=== PATIENT | female | born 1955 | race Caucasian/White ===

== ENCOUNTER 2017-08-04 16:01 | Inpatient (IN) | payer OTHER ==
[~2017-08-04] VITALS: Ht 162.6 cm; Wt 52.2 kg
[~2017-08-04 16:01] MED LIST: ACTI1/05PT PO; CELLC500PT PO; ESOM40CA42 PO; MAGN250T25 PO; POTA99TA13 PO; PRE1 PO; SIL20 PO; TACR1CAP15 PO; ZINC PO; [UNRECOGNIZED DRUG - CODE] PO; [UNRECOGNIZED DRUG - CODE] PO
--- NOTE | 2017-08-04 16:09 | ER Report ---
History and Physical Time Seen By MD: 16:09 (MORGAN COYSANTY) HPI/ROS CHIEF COMPLAINT: Shortness of breath HISTORY OF PRESENT ILLNESS: This is a 62-year-old female who presents to the emergency department for shortness of breath. Patient has a history of liver transplant, and is on antirejection medications. Patient states that prior to the holiday season she had some shortness of breath with a cough, was treated with Z-pack x2. [place] better until this past . Patient states her has been sick and thinks she "ended up with what he had". She developed some shortness of breath this past Thursday, with some midsternal chest pain. Patient states that since then her shortness of breath has increased and did go in to see her primary care provider where she was noted to have an oxygen saturation of 50%, and was instructed to come to the emergency department for further evaluation. When she arrived here in emergency department her O2 saturation was 50%, and was working pretty hard using accessory muscles and it did take about 10 minutes while on a nonrebreather to increase saturations up to 90-95%. Patient also states that she has had aches and chills over the past several days , one episode of vomiting last night but nothing today no nausea at this time. Patient is unsure she's had fevers at home. She also states that she does have a mild headache. No dysuria or bowel concerns at this time. REVIEW OF SYSTEMS: Constitutional: As above. Eyes: No discharge. ENT: No sore throat. Cardiovascular: As above. Respiratory: As above. Gastrointestinal: As above. Genitourinary: No hematuria. Musculoskeletal: No back pain. Skin: No rashes. Neurological: No headache. (MORGAN COY) Allergies: Coded Allergies: levofloxacin (Verified Allergy, Intermediate, HIVES, 08/04/17) Home Meds Reported Medications Mycophenolate Mofetil (CELLCEPT) 500 Mg Tab, 2 TAB PO BID, TAB 05/26/13 Tacrolimus Anhydrous (Prograf) 1 Mg Capsule, 1 MG PO BID, 0 Refills 05/16/08 Discontinued Reported Medications Multivitamins (One Daily Multi Vitamin) 1 Tab Tablet, 1 TAB PO DAILY, 0 Refills 05/16/08 Past Medical/Surgical History Patient has a past medical and surgical history pulmonary hypertension, constipation, liver transplant, hysterectomy, wears glasses, skin cancer. (MORGAN COY-SANTY) Reviewed Nurses Notes: Yes (MORGAN COY) Constitutional Vital Sign - Last 24 Hours 08/04/17 16:11 Temp 98.9 Pulse 99 B/P (MAP) 114/55 Pulse Ox 54 O2 Delivery Room Air (LAURORA,GABRIEL V DO) Physical Exam General Appearance: The patient is alert, has no immediate need for airway protection and no signs of toxicity, however she is working hard to breath, lips pale. Eyes: Pupils equal and round no pallor or injection. ENT, Ears: TM's intact, pearly dai, landmarks noted, no injection, left canal moderate amount of cerumen. Nose: inferior turbinates pink and moist, no discharge. Mouth: Mucous membranes are moist. Respiratory: Rhonchi bilateral bases, expiratory wheezes to the right middle lobe, upper lobes clear. Cardiovascular: Regular rate and rhythm, systolic murmur, no rubs or clicks. Gastrointestinal: Abdomen is soft and non tender, no masses, bowel sounds normal. Neurological: Alert and oriented 4. Moving all extremities. Following all commands. No focal neural deficits. Skin: Warm and dry, no rashes. Musculoskeletal: Neck is supple non tender. Extremities are nontender, nonswollen and have full range of motion. DIFFERENTIAL DIAGNOSIS: After history and physical exam differential diagnosis was considered for shortness of breath including but not limited to pulmonary infectious process, COPD, asthma, pulmonary embolus and congestive heart failure , influenza. (MORGAN COY) Medical Decision Making Data Points Result Diagram: 08/04/17 1625 08/04/17 1625 EKG/Imaging EKG Interpretation 12 lead EKG: Time 1650 Rhythm: Sinus rhythm, ventricular rate 91 bpm. [place]: normal QRS: normal ST segments: No ST depression or elevation noted. No previous EKG. Imaging PATIENT NAME: Soheila Mccormack : 1955 MR: [id number] V: [id number] EXAM DATE: ORDERING PHYSICIAN: MORGAN COY TECHNOLOGIST: [place] [facility] [place] Soheila Mccormack : 1955 Visit/Account:[id number] Date of Sevice: 08/04/2017 2 VIEWS CHEST INDICATION: Chest pain, cough and congestion. COMPARISON: 01/15/2015. FINDINGS: Cardiomediastinal silhouette and pulmonary vessels within normal limits. Patchy bilateral multilobar infiltrates which are new from the previous exam. No focal consolidation. There is no pneumothorax or pleural effusion. No discrete nodule. Upper abdomen is unremarkable. No acute bony abnormality. IMPRESSION: 1. Bilateral patchy hazy infiltrates without consolidation. This could represent pneumonia, edema or hemorrhage. Report Dictated By: Keaton Lambert at 08/04/2017 5:38 PM Report E-Signed By: Keaton Lambert at 08/04/2017 5:40 PM WSN:[id number] (MORGAN COY) ED Course/Re-evaluation Clinical Indication for ER IV: Hydration, IV Access ED Course The patient was admitted to room. A history and physical were obtained. Differential diagnoses were considered. An IV was started. A CBC, CMP were obtained. WBCs 19.3 with a left shift. Sodium 122, BUN 27, creatinine 1.4. Negative influenza. A 2 view chest showing bilateral patchy infiltrates consistent with pneumonia. I did review these results with the patient and she is willing to be admitted to the hospital. Patient's oxygen saturation on 4 L nasal cannula has been 90-95%. Patient did get a 500 L bolus of lactated Ringer' s. Patient was given an hour long neb tx which improver her oxygenation, with decreased work of breathing. I did review this case with Dr. Aggarwal as noted below. Admitted to medical surgical unit for pneumonia. 3.375 Zosyn was given. The patient had no other questions or concerns upon admission. 08/04/2017 6:10:06 pm did review the case with Dr. Silver Aggarwal, she is attentive to the patient into her services and we'll admit the patient to medical surgical unit for pneumonia. Decision to Disposition Date: Aug 04, 2017 Decision to Disposition Time: 18:05 (MORGAN COY) Depart Departure Latest Vital Signs Vital Signs Date Time Temp Pulse Resp B/P (MAP) Pulse Ox O2 Delivery O2 Flow Rate FiO2 08/04/17 16:11 98.9 99 114/55 54 Room Air (LAURORA,GABRIEL V DO) Impression: Primary Impression: Pneumonia Additional Impressions: Hypoxia Failure of outpatient treatment Hyponatremia Condition: Improved Disposition: Admitted from ER Referrals: GURPREET VICENTE (PCP) [facility]NT/[place] consult with MD: Verbally, Examined Patient MD Consult Note: I personally saw and evaluated the patient in conjunction with the midlevel provider and agree with plan. CHIEF COMPLAINT: sob HISTORY OF PRESENT ILLNESS: PT states she has been sick with sob and uri symptoms for over two weeks. Pt has been to [facility] and tx with zithromax twice. Pt states feeling worse, + cough, + chills, + bodyaches. Pt took her pulse ox at home today and was 50% on room air. Pt is usually not on oxygen but has had it since her recent cold. Denies cp. PT is on immunosuppressives. REVIEW OF SYSTEMS: Constitutional: No fever, + chills. Eyes: No discharge. ENT: No sore throat. Cardiovascular: No chest pain, no palpitations. Respiratory: + cough, + shortness of breath. Gastrointestinal: No abdominal pain, no vomiting. Genitourinary: No hematuria. Musculoskeletal: No back pain. + bodyaches Skin: No rashes. Neurological: No headache. General Appearance: The patient is alert, has no immediate need for airway protection and no signs of toxicity. Eyes: Pupils equal and round no pallor or injection, EOMI ENT: no pharyngeal erythema or exudates, Mucous membranes are moist Respiratory: + Rhonchi throughout with mild wheeze Cardiovascular: Regular rate and rhythm. pulses are equal and symmetrical, + murmur Gastrointestinal: Abdomen is soft and non tender, no masses, bowel sounds normal, no guarding, no rigidity or rebound Neurological: Cranial nerves II-XII grossly intact, no sensory or motor loss Skin: Warm and dry, no rashes. Musculoskeletal: Neck is supple non tender, no vertebral tenderness Extremities are nontender, non swollen and have full range of motion. DIFFERENTIAL DIAGNOSIS: After history and physical exam differential diagnosis was considered for pneumonia, influenza, bronchitis (LAURORA,GABRIEL V DO) Problem Qualifiers Primary Impression: Pneumonia Pneumonia type: due to unspecified organism Laterality: bilateral Lung location: unspecified part of lung Qualified Codes: J18.9 - Pneumonia, unspecified organism MORGAN COYP-BC Aug 04, 2017 16:09 GABRIEL JC DO Aug 04, 2017 16:37
[2017-08-04] MEDS ORDERED: LR IV ONE (16:29)
[2017-08-04] MEDS ORDERED: IPRATROPIUM 0.5MG/2.5ML NEB NEB ONE (16:35)
[2017-08-04] MEDS ORDERED: ALBUTEROL 2.5 MG/0.5ML ER ONLY NEB ONE (16:35)
[2017-08-04 16:42] LABS: PLATELET COUNT, AUTOMATED 255 K/uL (150-450)
[2017-08-04] MEDS ORDERED: NS 0.9% NEB 3 ML SOLN ONE (16:45)
--- NOTE | 2017-08-04 17:05 | EKG ---
FACILITY: [facility] PATIENT NAME: ZACHARIAH KELLER : [id number] MR: [id number] V: [id number] EXAM DATE: ORDERING PHYSICIAN: MORGAN COY TECHNOLOGIST: TITA Test Reason : SOB Blood Pressure : / mmHG Vent. Rate : 091 BPM Atrial Rate : 091 BPM P-R Int : 146 ms QRS Dur : 084 ms QT Int : 354 ms P-R-T Axes : 065 058 059 degrees QTc Int : 435 ms Normal sinus rhythm Low voltage QRS Borderline ECG No previous ECGs available Confirmed by MUMTAZ FORBES ([id number]) on 08/04/2017 5:25:23 PM Referred By: ABEL Confirmed By:MUMTAZ FORBES
--- NOTE | 2017-08-04 17:45 | RADIOLOGY IMAGING REPORT ---
[facility] PATIENT NAME: Soheila Mccormack : 1955 MR: [id number] V: [id number] EXAM DATE: ORDERING PHYSICIAN: MORGAN COY TECHNOLOGIST: Location: [facility] [place] Patient: Soheila Mccormack : 1955 Visit/Account:[id number] Date of Sevice: 08/04/2017 2 VIEWS CHEST INDICATION: Chest pain, cough and congestion. COMPARISON: 01/15/2015. FINDINGS: Cardiomediastinal silhouette and pulmonary vessels within normal limits. Patchy bilateral multilobar infiltrates which are new from the previous exam. No focal consolidation. There is no pneumothorax or pleural effusion. No discrete nodule. Upper abdomen is unremarkable. No acute bony abnormality. IMPRESSION: 1. Bilateral patchy hazy infiltrates without consolidation. This could represent pneumonia, edema or hemorrhage. Report Dictated By: Keaton Lambert at 08/04/2017 5:38 PM Report E-Signed By: Keaton Lambert at 08/04/2017 5:40 PM WSN:[id number]
[2017-08-04] MEDS ORDERED: PIPERACILLIN/TAZO*3.375GM VIAL 3.375 GM in NS(*) 0.9% 100 ML ADDVANT BAG 100 ML IVPB ONE (18:15)
[2017-08-04] MEDS ORDERED: ACETAMINOPHEN 325 MG TAB PO PRN (18:45)
--- NOTE | 2017-08-04 19:00 | History & Physical ---
History of Present Illness Chief Complaint The patient is a 62 year old female with history of liver transplant who presents with several days of fever, chills and shortness of breath. History of Present Illness The patient states she had a respiratory infection before [place] and saw CLAUDIO An. She was treated with 2 courses of azithromycin and got better. She was well for 2 weeks. Last week her came home with a cold. She then developed respiratory symptoms including cough. She had fever and chills as well. She progressively became more short of breath and last night could not sleep. Her appetite has been poor. She was seen at her PCPs office today and was noted to have a oxygen saturation of 50% on room air. She was sent to the ER for further evaluation. History Problems: (1) Liver transplant recipient Status: Chronic (2) Hx of bacterial pneumonia Home Meds Reported Medications Doxycycline Hyclate (DOXYCYCLINE HYCLATE) 100 Mg Tablet.dr, 100 MG PO BID for 7 Days, #14 08/07/17 Cefdinir 300 Mg Cap (OMNICEF 300 MG CAP (OR EQUIV)) 300 Mg Cap, 300 MG PO BID for 7 Days, CAP 08/07/17 Mycophenolate Mofetil (CELLCEPT) 500 Mg Tab, 2 TAB PO BID, TAB 05/26/13 Tacrolimus Anhydrous (Prograf) 1 Mg Capsule, 1 MG PO BID, 0 Refills 05/16/08 Allergies: Coded Allergies: levofloxacin (Verified Allergy, Intermediate, HIVES, 08/04/17) Other Social/Family Hx The patient is and lives with her in [place]. 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 FH is noncontributory. Hx Smoking: No Exposure to Second Hand Smoke?: No Hx Alcohol Use: No Hx Substance Use Disorder: No Social Drug Use: Never History of IV Drug Use: No Review of Systems All Systems Reviewed/Normal: Yes, Except as Noted Constitutional: Fever Neurological: Weakness Cardiovascular: Chest Pain Respiratory: Shortness of Breath, Cough Gastrointestinal: Other (Decreased appetite.) Exam Vital Signs General Appearance: Alert, Awake, Other (Increased work of breathing. Appears ill.) Neuro: No Gross deficits Eyes: PERRLA ENT: Other (Dry mucous membranes.) Neck: No Masses Cardiovascular: Other (Tachy, regular with 2/6 JUSTEN heard best at LUSB.) Respiratory: Other (Bibasilar crackles. Occasional wheezing.) GI: Abd Soft and Non-Tender Extremities: Warm, Perfused, Other (No edema.) Integumentary: Skin Intact without Lesion / Mass Psych: Appropriate Mood & Affect Medical Decision Making Data Points Item Value Date Time Calcium Level 8.8 mg/dl 08/04/17 1625 Total Bilirubin 1.1 mg/dl 08/04/17 1625 Aspartate Amino Transf (AST/SGOT) 16 U/L 08/04/17 1625 Alanine Aminotransferase (ALT/SGPT) 32 U/L 08/04/17 1625 Alkaline Phosphatase 111 U/L 08/04/17 1625 Troponin I < 0.012 ng/ml 08/04/17 1625 Total Protein 6.6 gm/dl 08/04/17 1625 Albumin 3.5 g/dl 08/04/17 1625 Influenza Virus Type A (PCR) Negative 08/04/17 1630 Influenza Virus Type B (PCR) Negative 08/04/17 1630 Blood cultures pending. EKG / Imaging EKG Interpretation FACILITY: [facility] PATIENT NAME: SOHEILA KELLER : [id number] MR: [id number] V: [id number] EXAM DATE: ORDERING PHYSICIAN: MORGAN COY TECHNOLOGIST: TITA Test Reason : SOB Blood Pressure : / mmHG Vent. Rate : 091 BPM Atrial Rate : 091 BPM P-R Int : 146 ms QRS Dur : 084 ms QT Int : 354 ms P-R-T Axes : 065 058 059 degrees QTc Int : 435 ms Normal sinus rhythm Low voltage QRS Borderline ECG No previous ECGs available Confirmed by MUMTAZ FORBES ([id number]) on 08/04/2017 5:25:23 PM Referred By: ABEL Confirmed By:MUMTAZ FORBES 1650 T: CARLMARY ALICELI/ Monitor Interpretation: Sinus Tachycardia Imaging FACILITY: [facility] PATIENT NAME: Soheila Keller : 1955 MR: [id number] V: [id number] EXAM DATE: [id number] ORDERING PHYSICIAN: MORGAN COY TECHNOLOGIST: [place] [facility] [place] Soheila [place] : 1955 Visit/Account:[id number] Date of Sevice: 08/04/2017 2 VIEWS CHEST INDICATION: Chest pain, cough and congestion. COMPARISON: 01/15/2015. FINDINGS: Cardiomediastinal silhouette and pulmonary vessels within normal limits. Patchy bilateral multilobar infiltrates which are new from the previous exam. No focal consolidation. There is no pneumothorax or pleural effusion. No discrete nodule. Upper abdomen is unremarkable. No acute bony abnormality. IMPRESSION: 1. Bilateral patchy hazy infiltrates without consolidation. This could represent pneumonia, edema or hemorrhage. Report Dictated By: Keaton Lambert at 08/04/2017 5:38 PM Report E-Signed By: Keaton Lambert at 08/04/2017 5:40 PM WSN:[id number] Pre-Admit Course Medical Record Review: Yes Assessment and Plan Problems: (1) Pneumonia Status: Acute Assessment & Plan: Will place on Zosyn and doxycycline. Hydrate. Place on oxygen to keep sats 90% or greater. Duoneb treatments tid and albuterol q 2 hours prn. (2) Hypoxia Status: Resolved Assessment & Plan: Due to above. Continue O2. (3) Hyponatremia Status: Resolved Assessment & Plan: She states her sodium usually runs about 128. Will hydrate with NS. Repeat labs in am. (4) Liver transplant recipient Status: Chronic Assessment & Plan: On Prograf and Cellcept. Will continue. Time Spent on Plan of Care: < 30 min Copies to: GURPREET VICENTE Venous Thromboembolism VTE Risk Physician Assess for VTE Risk: Yes Patient's VTE Risk: Low VTE Diagnostic Test 2 Days Prior to Admit: No Antithrombotics Is Pt On Any Antithrombotics?: Yes Exam Sepsis Risk: Possible Sepsis Risk Problem Qualifiers (1) Pneumonia: Pneumonia type: due to unspecified organism Laterality: bilateral Lung location: unspecified part of lung Qualified Codes: J18.9 - Pneumonia, unspecified organism MUMTAZ OATES MD Aug 04, 2017 18:59
[2017-08-04 19:53] VITALS: BP 101/57
[2017-08-04] MEDS: NS(*) 0.9% 1000 ML BAG 1,000 ML IV PRN (20:24)
[2017-08-04] MEDS: DOXYCYCLINE HYCL 100 MG VIAL 100 MG in NS(*) 0.9% 250 ML BAG 250 ML IV SCH (20:44)
[2017-08-04] MEDS: TACROLIMUS 1 MG CAP PO SCH (20:44)
[2017-08-04] MEDS: MYCOPHENOLATE 500 MG TAB PO SCH (20:44)
[2017-08-04] MEDS ORDERED: PATIENT'S OWN MED PO SCH ×2 (21:00)
[2017-08-04 23:00] VITALS: BP 104/48
[2017-08-04] MEDS: PIPERACILLIN/TAZO SOD* 2.25 GM 2.25 GM in NS(*) 0.9% 100 ML ADDVANT BAG 100 ML IVPB SCH (23:29)
[2017-08-05] MEDS: guaiFENesin SYRP 100MG/5ML UDC PO PRN ×2 (00:36→04:41)
[2017-08-05 03:13] VITALS: BP 101/55
[2017-08-05] MEDS: NS(*) 0.9% 1000 ML BAG 1,000 ML IV PRN ×2 (04:41→14:48)
[2017-08-05] MEDS: PIPERACILLIN/TAZO SOD* 2.25 GM 2.25 GM in NS(*) 0.9% 100 ML ADDVANT BAG 100 ML IVPB SCH ×4 (05:34→23:21)
[2017-08-05] MEDS: ALBUTEROL/IPRATROPIUM 3 ML NEB NEB SCH ×3 (05:41→17:55)
[2017-08-05 05:42] LABS: PLATELET COUNT, AUTOMATED 263 K/uL (150-450)
[2017-08-05 07:36] VITALS: BP 97/57
[2017-08-05] MEDS: DOXYCYCLINE HYCL 100 MG VIAL 100 MG in NS(*) 0.9% 250 ML BAG 250 ML IV SCH ×2 (08:40→20:46)
[2017-08-05] MEDS: ENOXAPARIN 40 MG/0.4ML SYR SC SCH (08:40)
[2017-08-05] MEDS: TACROLIMUS 1 MG CAP PO SCH ×2 (08:50→20:45)
[2017-08-05] MEDS: MYCOPHENOLATE 500 MG TAB PO SCH ×2 (08:50→20:45)
[2017-08-05 09:47] VITALS: Ht 162.6 cm; Wt 52.2 kg
[2017-08-05 10:46] VITALS: BP 101/63
--- NOTE | 2017-08-05 10:46 | Hospitalist Progress Note ---
Subjective Progress Notes Subjective This patient was admitted for pneumonia. She had no acute events overnight. Patient Complains of: Cardiovascular: No: Chest Pain Respiratory: Cough, Shortness of Breath Physical Exam Vital Signs Date Time Temp Pulse Resp B/P (MAP) Pulse Ox O2 Delivery O2 Flow Rate FiO2 08/05/17 08:00 92 High-Flow Nasal Cannula 6.0 08/05/17 07:36 97.6 92 20 97/57 (70) Intake and Output 08/06/17 07:00 # Voids 1 Neuro: No Gross deficits Cardiovascular: Regular Rate and Rhythm Respiratory: Other (Bilateral rhonchi.) Extremities: No Edema Integumentary: No Cyanosis Result Diagram: 08/05/17 0528 08/05/1728 Item Value Date Time Blood Culture - Preliminary Resulted 08/04/17 1657 Blood NO GROWTH AFTER 1 DAY, REINCUBATED Blood Culture - Preliminary Resulted 08/04/17 1625 Blood NO GROWTH AFTER 1 DAY, REINCUBATED Monitor Interpretation: Sinus Tachycardia Assessment and Plan Problems: (1) Pneumonia Status: Acute Assessment & Plan: She did present with shortness of breath. Her chest x-ray did show bilateral infiltrates and her WBC was elevated. She was placed on empiric treatment with Zosyn and doxycycline secondary to her history of liver transplant and suppression therapy. Her blood cultures are currently negative. (2) Hypoxia Status: Acute Assessment & Plan: She did have increased oxygen requirements, but we have been weaning this today. (3) Hyponatremia Status: Acute Assessment & Plan: She reports that her sodium generally runs around 128, but it was lower at admission. Her levels have been improving on a saline infusion. 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 She is on chronic treatment with Prograf and Cellcept. Exam Sepsis Risk: Sepsis Risk Problem Qualifiers (1) Pneumonia: Pneumonia type: due to unspecified organism Laterality: bilateral Lung location: unspecified part of lung Qualified Codes: J18.9 - Pneumonia, unspecified organism GISELA WINTER DO Aug 05, 2017 10:46
[2017-08-05 14:49] VITALS: BP 90/47
[2017-08-05 14:56] VITALS: BP 98/50
[2017-08-05 20:37] VITALS: BP 91/63
[2017-08-05] MEDS: IBUPROFEN 200 MG TAB PO PRN (23:21)
[2017-08-06] MEDS: guaiFENesin SYRP 100MG/5ML UDC PO PRN (02:08)
[2017-08-06 03:48] VITALS: BP 89/50
[2017-08-06] MEDS: ALBUTEROL/IPRATROPIUM 3 ML NEB NEB SCH ×3 (05:17→17:05)
[2017-08-06 05:42] LABS: PLATELET COUNT, AUTOMATED 243 K/uL (150-450)
[2017-08-06] MEDS: PIPERACILLIN/TAZO SOD* 2.25 GM 2.25 GM in NS(*) 0.9% 100 ML ADDVANT BAG 100 ML IVPB SCH (06:00)
--- NOTE | 2017-08-06 06:25 | RADIOLOGY IMAGING REPORT ---
FACILITY: PATIENT NAME: Soheila Mccormack : 1955 MR: [id number] V: [id number] EXAM DATE: ORDERING PHYSICIAN: GISELA WINTER TECHNOLOGIST: Location: [facility] Patient: Soheila Mccormack : 1955 Visit/Account:[id number] Date of Sevice: 08/06/2017 PORTABLE CHEST: Indication: Pneumonia. Technique: A single frontal film was obtained. Comparison: 08/04/2017 Skeletal and soft tissue structures: Intact and unchanged. Heart and mediastinum: Stable. Lung crane: There is ill-defined parenchymal consolidation at the left base, compatible with acute p neumonia. The lung crane are otherwise unchanged. Pleural spaces: A small left effusion is suspected. Impression: Left basilar parenchymal consolidation, compatible with acute pneumonia. Report Dictated By: Loco West MD at 08/06/2017 6:20 AM Report E-Signed By: Loco West MD at 08/06/2017 6:21 AM WSN:[id number]
[2017-08-06] MEDS: ENOXAPARIN 40 MG/0.4ML SYR SC SCH (08:43)
[2017-08-06] MEDS: DOXYCYCLINE HYCL 100 MG VIAL 100 MG in NS(*) 0.9% 250 ML BAG 250 ML IV SCH ×2 (08:43→20:19)
[2017-08-06] MEDS: MYCOPHENOLATE 500 MG TAB PO SCH ×2 (08:44→20:18)
[2017-08-06] MEDS: TACROLIMUS 1 MG CAP PO SCH ×2 (08:44→20:18)
[2017-08-06] MEDS ORDERED: INFLUENZA VIRUS VAC 0.5 ML SYR IM ONLY ONE (09:00)
[2017-08-06] MEDS ORDERED: NS(*) 0.9% 1000 ML BAG 1,000 ML IV PRN (09:52)
[2017-08-06 11:36] VITALS: BP 102/49
[2017-08-06] MEDS: PIPERACILLIN/TAZO*3.375GM VIAL 3.375 GM in NS(*) 0.9% 100 ML ADDVANT BAG 100 ML IVPB SCH ×3 (11:52→23:22)
[2017-08-06] MEDS ORDERED: FUROSEMIDE 20 MG/2 ML VIAL IVP ONE (12:50)
[2017-08-06] MEDS ORDERED: MAGNESIUM HYDROXIDE* 30ML UDCP PO PRN (12:50)
[2017-08-06] MEDS: POLYETHYLENE GLYCOL 17 GM PKT PO SCH (12:50)
[2017-08-06] MEDS ORDERED: BISACODYL 10 MG SUPP PR PRN (12:50)
--- NOTE | 2017-08-06 14:26 | Hospitalist Progress Note ---
Subjective Progress Notes Subjective Overall feeling better and less SOB. She had some abdominal distention. No BM since admission. Physical Exam Vital Signs Date Time Temp Pulse Resp B/P (MAP) Pulse Ox O2 Delivery O2 Flow Rate FiO2 08/06/17 12:52 79 18 08/06/17 12:48 93 High-Flow Nasal Cannula 10.0 08/06/17 11:36 98.0 102/49 (66) Intake and Output 08/07/17 07:00 Intake Total 583 ml Balance 583 ml Intake Oral 480 ml IV Total 103 ml General Appearance: Alert, Awake, Other (mild work of breathing) Respiratory: Other (Decreased BS in the left base. Bilateral insp crackles to mid lung (L>R).) GI: Soft and Non-Tender Result Diagram: 08/06/17 0520 08/06/17 05 Monitor Interpretation: Sinus Tachycardia Assessment and Plan Problems: (1) Pneumonia Status: Acute Assessment & Plan: She did present with shortness of breath complicated by immune suppression for liver transplant. Her chest x-ray did show bilateral infiltrates and her WBC was elevated. She was placed on empiric treatment with Zosyn and doxycycline secondary to her history of liver transplant and suppression therapy. Afebrile since admission. Her O2 requirement remains high , but her WBC is coming down and she is overall feeling like she is improving. Her blood cultures are currently negative. (2) ARF (acute renal failure) Status: Acute Assessment & Plan: Secondary to decreased oral intake from pneumonia. Improved with hydration. Saline lock. (3) Hypoxia Status: Acute Assessment & Plan: She did have increased oxygen requirements. See above. Will give a dose of Lasix to "dry the lungs out". (4) Hyponatremia Status: Acute Assessment & Plan: She reports that her sodium generally runs around 128, but it was lower at admission. Her levels have been improving on a saline infusion. 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 She is on chronic treatment with Prograf and Cellcept. Exam Sepsis Risk: No Definite Risk Problem Qualifiers (1) Pneumonia: Pneumonia type: due to unspecified organism Laterality: bilateral Lung location: unspecified part of lung Qualified Codes: J18.9 - Pneumonia, unspecified organism JOELLE GRANT MD Aug 06, 2017 14:26
[2017-08-06 19:05] VITALS: BP 108/51
[2017-08-06] MEDS: DOCUSATE SODIUM 100 MG CAP PO SCH (20:17)
[2017-08-06] MEDS: IBUPROFEN 200 MG TAB PO PRN (20:18)
[2017-08-06] MEDS ORDERED: NS(*) 0.9% 250 ML BAG 250 ML ONE (23:22)
[2017-08-06 23:24] VITALS: BP 100/54
[2017-08-07 03:31] VITALS: BP 112/53
[2017-08-07] MEDS: ALBUTEROL/IPRATROPIUM 3 ML NEB NEB SCH ×4 (04:53→17:13)
[2017-08-07] MEDS: PIPERACILLIN/TAZO*3.375GM VIAL 3.375 GM in NS(*) 0.9% 100 ML ADDVANT BAG 100 ML IVPB SCH ×2 (05:40→12:13)
[2017-08-07 05:53] LABS: PLATELET COUNT, AUTOMATED 289 K/uL (150-450)
[2017-08-07 07:45] VITALS: BP 112/56
[2017-08-07] MEDS: DOCUSATE SODIUM 100 MG CAP PO SCH (09:00)
[2017-08-07] MEDS: POLYETHYLENE GLYCOL 17 GM PKT PO SCH (09:00)
[2017-08-07] MEDS: MYCOPHENOLATE 500 MG TAB PO SCH (09:31)
[2017-08-07] MEDS: ENOXAPARIN 40 MG/0.4ML SYR SC SCH (09:31)
[2017-08-07] MEDS: DOXYCYCLINE HYCL 100 MG VIAL 100 MG in NS(*) 0.9% 250 ML BAG 250 ML IV SCH (09:31)
[2017-08-07] MEDS: TACROLIMUS 1 MG CAP PO SCH (09:31)
[2017-08-07] MEDS ORDERED: FUROSEMIDE 40 MG TAB PO ONE (10:30)
--- NOTE | 2017-08-07 13:20 | RADIOLOGY IMAGING REPORT ---
FACILITY: [facility] PATIENT NAME: Soheila Mccormack : 1955 MR: [id number] V: [id number] EXAM DATE: ORDERING PHYSICIAN: FRANKIE MÁRQUEZ TECHNOLOGIST: Location: [facility] [place] Patient: Soheila Mccormack : 1955 Visit/Account:[id number] Date of Sevice: 08/07/2017 Exam type: CHEST SINGLE AP History: pneumonia Comparison: August 06, 2017. Findings: Left basilar airspace consolidation is relatively unchanged when compared the prior study. There are now patchy areas of alveolar consolidation seen throughout both lungs in addition to interstitial pr ominence and peribronchial thickening. The cardiac silhouette is normal in size. IMPRESSION: 1. Left basilar airspace consolidation is relatively unchanged when compared the prior study consist ent with the history of pneumonia There are now patchy areas of alveolar consolidation seen throughout the lungs which have increased w hen compared the prior study likely related to multifocal pneumonia. Interstitial prominence and per ibronchial thickening remains unchanged Report Dictated By: Munira Oliveira MD at 08/07/2017 1:15 PM Report E-Signed By: Munira Oliveira MD at 08/07/2017 1:16 PM WSN:[email or web address]
--- NOTE | 2017-08-07 15:57 | Hospitalist Depart ---
Discharge Summary Reason for Hosp/Final Diag: (1) Pneumonia Status: Acute Hospital Course & Plan: She did present with shortness of breath complicated by immune suppression for liver transplant. Her chest x-ray did show bilateral infiltrates and her WBC was elevated. She was placed on empiric treatment with Zosyn and doxycycline secondary to her history of liver transplant and suppression therapy. Afebrile since admission. Her O2 requirement remains high , but her WBC is coming down and she is overall feeling like she is improving. Her blood cultures are currently negative. 08/07: Mrs. Mccormack is a 62 year old female with history of liver transplant who presents with several days of fever, chills and shortness of breath. The patient states she had a respiratory infection before [place] and saw CLAUDIO An. She was treated with 2 courses of azithromycin and got better. She was well for 2 weeks. Last week her came home with a cold. She then developed respiratory symptoms including cough. She had fever and chills as well. She progressively became more short of breath and last night could not sleep. Her appetite has been poor. She was seen at her PCPs office today and was noted to have a oxygen saturation of 50% on room air. She was sent to the ER for further evaluation. During the hospital course she found to have LLL Pneumonia and she received 3 days worth of IV Zosyn and Doxycycline. She is feeling better and anxious to go home. Her repeat CXR without change and I will place her Omnicef 300mg po bid for 7 more days and Doxycycline 100mg po bid for 7 days. She will be followed closely with her PCP (2) ARF (acute renal failure) Status: Resolved Hospital Course & Plan: Secondary to decreased oral intake from pneumonia. Improved with hydration. Saline lock. (3) Hypoxia Status: Resolved Hospital Course & Plan: She did have increased oxygen requirements. See above. Will give a dose of Lasix to "dry the lungs out". (4) Hyponatremia Status: Resolved Hospital Course & Plan: She reports that her sodium generally runs around 128, but it was lower at admission. Her levels have been improving on a saline infusion. 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 She is on chronic treatment with Prograf and Cellcept. Departure Weight (Pounds): 115 Result Diagram: 08/07/1752908/07/17529 Condition: Improved Discharge: Self Care Time Spent: < 30 min Discharge Instructions Home Meds Reported Medications Doxycycline Hyclate (DOXYCYCLINE HYCLATE) 100 Mg Tablet.dr, 100 MG PO BID for 7 Days, #14 08/07/17 Cefdinir 300 Mg Cap (OMNICEF 300 MG CAP (OR EQUIV)) 300 Mg Cap, 300 MG PO BID for 7 Days, CAP 08/07/17 Mycophenolate Mofetil (CELLCEPT) 500 Mg Tab, 2 TAB PO BID, TAB 05/26/13 Tacrolimus Anhydrous (Prograf) 1 Mg Capsule, 1 MG PO BID, 0 Refills 05/16/08 Discontinued Reported Medications Multivitamins (One Daily Multi Vitamin) 1 Tab Tablet, 1 TAB PO DAILY, 0 Refills 05/16/08 Diet: Regular Activity: As Tolerated Copies to: GURPREET VIC[employer]E [employer] Venous Thromboembolism VTE Risk Physician Assess for VTE Risk: Yes Patient's VTE Risk: Low VTE Diagnostic Test 2 Days Prior to Admit: No Antithrombotics Is Pt On Any Antithrombotics?: No Problem Qualifiers (1) Pneumonia: Pneumonia type: due to unspecified organism Laterality: bilateral Lung location: unspecified part of lung Qualified Codes: J18.9 - Pneumonia, unspecified organism FRANKIE MÁRQUEZ MD Aug 07, 2017 15:57
[2017-08-07] MEDS ORDERED: CEF300 PO (17:10)
[2017-08-07] MEDS ORDERED: DOXY-228 PO (17:20)
[2017-08-07] MEDS ORDERED: DOXYCYCLINE HYCL 100 MG TAB PO SCH (21:00)
[2017-08-07] MEDS ORDERED: CEFDINIR 300 MG CAP PO SCH (21:00)
== END 2017-08-07 18:30 | disposition home or self-care (01) | DRG 194 ==
LOC: ER 16:09 → MED 18:26
PROVIDERS: ADMIT Internal Medicine; ATTEND Internal Medicine
DX: J18.1 Lobar pneumonia, unspecified organism (principal); Z94.4 Liver transplant status; N17.9 Acute kidney failure, unspecified; E87.1 Hypo-osmolality and hyponatremia; R09.02 Hypoxemia; K59.09 Other constipation; I27.20 Pulmonary hypertension, unspecified; Z88.8 Allergy status to other drugs, medicaments and biological substances; Z90.710 Acquired absence of both cervix and uterus; Z85.828 Personal history of other malignant neoplasm of skin
CPT/HCPCS: 36415; 71045; 71046; 82040; 82247; 82310; 82374; 82435; 82565; 82947; 84075; 84132; 84155; 84295; 84450; 84460; 84484; 84520; 85025; 87040; 87502; 93005; 94640; 94644; 94667; 94668; 96361; 96365; 99285; A4218; J1650; J1940; J2543; J3490; J7030; J7050; J7120; J7611; J7644

== ENCOUNTER → 2017-08-13 | Outpatient (CLI) | payer OTHER ==
[2017-08-05 09:47] VITALS: BMI 19.7
[~2017-08-13] MED LIST changes: +CEF300 PO; +DOXY-228 PO
[2017-08-13 10:31] LABS: PLATELET COUNT, AUTOMATED 384 K/uL (150-450)
--- NOTE | 2017-08-13 11:57 | RADIOLOGY IMAGING REPORT ---
FACILITY: [facility] PATIENT NAME: Soheila Mccormack : 1955 MR: [id number] V: [id number] EXAM DATE: ORDERING PHYSICIAN: VENKATESH MC TECHNOLOGIST: Location: [facility] Patient: Soheila Mccormack : 1955 Visit/Account:[id number] Date of Sevice: 08/13/2017 Exam type: CHEST PA AND LAT History: Follow-up pneumonia one week ago, cough shortness of breath feeling better Comparison: August 07, 2017. Findings: Patchy areas of interstitial and alveolar consolidation throughout the lungs appears relatively uncha nged other than slight improvement of the left lingular airspace consolidation. Small left pleural e ffusion slightly improved as well. The cardiac silhouette is normal IMPRESSION: 1. Most of the patchy areas of alveolar and interstitial consolidation throughout the lungs appear u nchanged although there is slight improvement of the lingular airspace consolidation Small left pleural effusion slightly improved Report Dictated By: Munira Oliveira MD at 08/13/2017 11:50 AM Report E-Signed By: Munira Oliveira MD at 08/13/2017 11:53 AM WSN:[email or web address]
== END ==
LOC: RAD 10:05
PROVIDERS: ATTEND Nurse Practitioner Family
DX: J90 Pleural effusion, not elsewhere classified (principal); E87.1 Hypo-osmolality and hyponatremia
CPT/HCPCS: 36415; 71046; 82040; 82247; 82310; 82374; 82435; 82565; 82947; 84075; 84132; 84155; 84295; 84450; 84460; 84520; 85025

== ENCOUNTER → 2017-08-20 | Outpatient (CLI) | payer OTHER ==
[2017-08-05 09:47] VITALS: BMI 19.7
--- NOTE | 2017-08-20 08:53 | RADIOLOGY IMAGING REPORT ---
[place] [facility] [place]IENT NAME: Soheila Mccormack : 1955 MR: [id number] V: [id number] EXAM DATE: ORDERING PHYSICIAN: VENKATESH MC TECHNOLOGIST: Location: [facility] Patient: Soheila Mccormack : 1955 Visit/Account:[id number] Date of Sevice: 08/20/2017 Technique: CHEST PA AND LAT HISTORY: Pneumonia, hypoxic Comparison studies: Chest radiograph 08/13/2017 FINDINGS: There has been interval improvement of the patchy multilobar airspace opacities. The left- sided pleural effusion has also resolved. The cardiac silhouette is unremarkable. IMPRESSION: 1. Improving multilobar airspace opacities as well as a resolved left-sided pleural effusion. Report Dictated By: Zane Cunningham DO at 08/20/2017 8:47 AM Report E-Signed By: Zane Cunningham DO at 08/20/2017 8:49 AM WSN:[email or web address]
== END ==
LOC: RAD 08:21
PROVIDERS: ATTEND Nurse Practitioner Family
DX: R09.02 Hypoxemia (principal); J18.9 Pneumonia, unspecified organism
CPT/HCPCS: 71046

== ENCOUNTER → 2017-08-27 | Outpatient (CLI) | payer OTHER ==
[2017-08-05 09:47] VITALS: BMI 19.7
--- NOTE | 2017-08-27 14:26 | RADIOLOGY IMAGING REPORT ---
FACILITY: [facility] [place] PATIENT NAME: Soheila Mccormack : 1955 MR: [id number] V: [id number] EXAM DATE: ORDERING PHYSICIAN: VENKATESH MC TECHNOLOGIST: Location: [facility] Patient: Soheila Mccormack : 1955 Visit/Account:[id number] Date of Sevice: 08/27/2017 CHEST PA AND LAT Indication: Shortness of breath, history of pneumonia, hypoxia. Comparison: Chest x-ray 08/20/2017 Findings: Lungs: Prominent interstitial markings throughout both lungs are slightly improved from the prior yamilet dy. There is improvement of previously seen patchy airspace opacities. Mediastinum/pulmonary vasculature: Heart size and pulmonary vasculature are normal. Bones/soft tissues: Normal. IMPRESSION: Improved aeration of both lungs, with improvement of previously seen patchy airspace opacities and re ticular opacities. This is consistent with improving pneumonia or edema. Report Dictated By: Chris Jansen at 08/27/2017 2:21 PM Report E-Signed By: Chris Jansen at 08/27/2017 2:22 PM WSN:[email or web address]
== END ==
LOC: RAD 10:03
PROVIDERS: ATTEND Nurse Practitioner Family
DX: R09.02 Hypoxemia (principal); R06.02 Shortness of breath; Z87.01 Personal history of pneumonia (recurrent)
CPT/HCPCS: 36415; 71046; 82040; 82247; 82310; 82374; 82435; 82565; 82947; 84075; 84132; 84155; 84295; 84450; 84460; 84520

== ENCOUNTER → 2017-09-10 | Outpatient (CLI) | payer OTHER ==
[2017-08-05 09:47] VITALS: BMI 19.7
== END ==
LOC: LAB 08:50
PROVIDERS: ATTEND Nurse Practitioner Family
DX: E87.1 Hypo-osmolality and hyponatremia (principal); E78.5 Hyperlipidemia, unspecified; Z94.4 Liver transplant status
CPT/HCPCS: 36415; 82040; 82247; 82310; 82374; 82435; 82565; 82947; 84075; 84132; 84155; 84295; 84450; 84460; 84520

== ENCOUNTER 2017-11-19 02:11 | Day surgery (SDC) | payer OTHER ==
[2017-08-05 09:47] VITALS: Ht 162.6 cm; Wt 49.0 kg
[~2017-11-19] VITALS: Ht 162.6 cm; Wt 49.0 kg
[2017-11-19 06:35] VITALS: BP 94/63
[2017-11-19] MEDS ORDERED: NORMOSOL R SOLN(*) 1000 ML BAG 1,000 ML IV PRN (06:45)
[2017-11-19] MEDS ORDERED: MIDAZOLAM 2 MG/2 ML VIAL IVP PRN (06:45)
[2017-11-19] MEDS ORDERED: LIDOCAINE/SOD BICARB 8.4% SYR ID ONE (06:45)
[2017-11-19] MEDS ORDERED: PROPOFOL EMUL(*) 10MG/ML 20 ML 40 ML ONE (07:22)
[2017-11-19] MEDS ORDERED: LIDOCAINE MPF 1% 5 ML VIAL ONE (07:22)
--- NOTE | 2017-11-19 07:23 | Post Operative Progress Note ---
Post Operative Progress Note Date: November 19, 2017 Time: 08:04 Surgeon: radha Anesthesia: dr majano Pre-Op Diagnosis: history of polyps Post-Op Diagnosis: normal colonoscopy Procedure(s): colonoscopy MARILIN SHERIFF MD November 19, 2017 07:23
--- NOTE | 2017-11-19 07:23 | Short(Outpt) Discharge Summary ---
Discharge Summary Reason for Hosp/Final Diag: (1) Encounter for colonoscopy due to history of adenomatous colonic polyps Hospital Course & Plan: normal colonoscopy Departure Discharge to: Home Discharge Instructions Home Meds Reported Medications Mycophenolate Mofetil (CELLCEPT) 500 Mg Tab, 2 TAB PO BID, TAB 05/26/13 Tacrolimus Anhydrous (Prograf) 1 Mg Capsule, 1 MG PO BID, 0 Refills 05/16/08 Discontinued Reported Medications Doxycycline Hyclate (DOXYCYCLINE HYCLATE) 100 Mg Tablet.dr, 100 MG PO BID for 7 Days, #14 08/07/17 Cefdinir 300 Mg Cap (OMNICEF 300 MG CAP (OR EQUIV)) 300 Mg Cap, 300 MG PO BID for 7 Days, CAP 08/07/17 Diet: Regular Activity: As Tolerated MARILIN SHERIFF MD November 19, 2017 07:23
[2017-11-19] MEDS ORDERED: ePHEDrine 25 MG/5 ML DISP.SYR IVP ONE (07:52)
[2017-11-19 08:03] VITALS: BP 77/37
[2017-11-19 08:15] VITALS: BP 83/35
[2017-11-19 08:30] VITALS: BP_SYST 107; BP_SYST 91; BP_DIAS 50; BP_DIAS 61; BP_DIAS 64
--- NOTE | 2017-11-19 14:35 | OPERATIVE REPORT 1 ---
EVENT DATE: November 19, 2017 SURGEON: Jeff Pierre MD ANESTHESIOLOGIST: Terrance Terrazas MD ANESTHESIA: Sedation. PREOPERATIVE DIAGNOSES 1. Surveillance colonoscopy. 2. Personal history of polyps. POSTOPERATIVE DIAGNOSIS Normal-appearing colonoscopic examination. PROCEDURE PERFORMED Colonoscopy. DESCRIPTION OF PROCEDURE Patient was placed in the left lateral decubitus position and given intravenous sedation. Rectal exam was unremarkable. Flexible colonoscope was inserted and advanced to the cecum. She had quite a tortuous sigmoid colon. The ileocecal valve and base of the cecum were identified. Scope was slowly withdrawn. She had an excellent bowel prep. Care was taken to look behind the haustral folds. No abnormalities were noted in the cecum, right colon, transverse, descending , or sigmoid colon. Rectum was normal. Scope was retroflexed. That appeared to be normal. [facility]
== END 2017-11-19 09:50 | disposition home or self-care (01) ==
LOC: OR 02:11
PROVIDERS: ATTEND Surgery
DX: Z12.11 Encounter for screening for malignant neoplasm of colon (principal); Z86.010 Personal history of colon polyps
CPT/HCPCS: 00812; 45378; J2001; J2704

== ENCOUNTER → 2018-05-20 | Outpatient (CLI) | payer OTHER ==
[2017-08-05 09:47] VITALS: BMI 19.7
--- NOTE | 2018-05-21 12:19 | RADIOLOGY IMAGING REPORT ---
[place] [facility] [place] ZACHARIAH KELLER : [id number] MR: [id number] V: [id number] EXAM DATE: [id number] ORDERING PHYSICIAN: VENKATESH MC TECHNOLOGIST: Andie Regalado PROCEDURE:BILATERAL DIGITAL SCREENING MAMMOGRAM WITH CAD ASSISTED INTERPRETATION & 3D TOMOSYNTHESIS COMPARISON:Prior mammograms from 05/06/17 through 10/24/11. INDICATIONS:SCREENING FINDINGS: Scattered fibroglandular tissue. No parenchymal mass lesion, architectural distortion or any clusters of suspicious microcalcifications. DIAGNOSTIC CATEGORY 1--NEGATIVE. RECOMMENDATIONS: ROUTINE MAMMOGRAM AND CLINICAL EVALUATION. IMPRESSION: BIRADS 1: Negative. Dictated by: Tashi Cerrato M.D. on 05/21/2018 at 9:48 Transcribed by: INES on 05/21/2018 at 10:40 Approved by: Tashi Cerrato M.D. on 05/21/2018 at 12:18 [facility]
== END ==
LOC: MAMO 01:19
PROVIDERS: ATTEND Nurse Practitioner Family
DX: Z12.31 Encounter for screening mammogram for malignant neoplasm of breast (principal)
CPT/HCPCS: 77063; 77067

== ENCOUNTER → 2018-09-17 | Outpatient (CLI) | payer OTHER ==
[2017-08-05 09:47] VITALS: BMI 19.7
== END ==
LOC: LAB 18:09
PROVIDERS: ATTEND Nurse Practitioner Family
DX: R09.02 Hypoxemia (principal); R05 Cough
CPT/HCPCS: 36415; 85379

== ENCOUNTER → 2018-09-17 | Outpatient (CLI) | payer OTHER ==
[2017-08-05 09:47] VITALS: BMI 19.7
--- NOTE | 2018-09-17 16:48 | RADIOLOGY IMAGING REPORT ---
FACILITY: [facility] PATIENT NAME: Soheila Mccormack : 1955 MR: [id number] V: [id number] EXAM DATE: ORDERING PHYSICIAN: GURPREET VICENTE TECHNOLOGIST: Location: [facility] Patient: Soheila Mccormack : 1955 Visit/Account:[id number] Date of Sevice: 09/17/2018 Chest with lateral, two views. HISTORY: Cough, hypoxia, upper respiratory infection. COMPARISON: 08/27/2017. The heart size is normal. Central pulmonary arteries are mildly enlarged, unchanged. The thoracic a zora is minimally elongated. Interstitial markings are mildly thickened bilaterally. The lungs are voluminous. No pleural fluid. No acute bony abnormalities. IMPRESSION: Voluminous lungs. Otherwise no evidence of acute cardiopulmonary disease. Report Dictated By: Emile Rice MD at 09/17/2018 4:42 PM Report E-Signed By: Emile Rice MD at 09/17/2018 4:44 PM WSN:[email or web address]
== END ==
LOC: RAD 15:58
PROVIDERS: ATTEND Nurse Practitioner Family
DX: R09.02 Hypoxemia (principal); R05 Cough; J06.9 Acute upper respiratory infection, unspecified
CPT/HCPCS: 71046

== ENCOUNTER → 2018-09-24 | Outpatient (CLI) | payer OTHER ==
[2017-08-05 09:47] VITALS: BMI 19.7
[~2018-09-24] MED LIST changes: +IOPAMIDOL 76% 100 ML INFUS BTL 100 ML ONE; +NS(*) 0.9% 50 ML BAG 50 ML ONE
--- NOTE | 2018-09-24 11:52 | RADIOLOGY IMAGING REPORT ---
FACILITY: [facility] PATIENT NAME: Soheila Mccormack : 1955 MR: [id number] V: [id number] EXAM DATE: ORDERING PHYSICIAN: GURPREET VICENTE TECHNOLOGIST: [facility] Patient: Soheila Mccormack : 1955 Visit/Account:[id number] Date of Sevice: 09/24/2018 CT CTA CHEST W & W/O CON HISTORY: Chest pain, cough, hypoxia, elevated d-dimer, history of liver transplant 10 years ago ADDITIONAL HISTORY: None. TECHNIQUE: CTA chest with intravenous contrast. Axial imaging acquired following administration of IV contrast timed for maximum opacification of the pulmonary arterial vasculature. Slab 3-D MIP chayo nstructed images were also created for further evaluation and interpretation. Reconstruction of the [facility] data set includes multiplanar 2-D in the sagittal and coronal planes and 3-D reconstructed baljit nal slab MIP series. 3-D images were created by the technologist.Dose Lowering Technique One of the following dose optimization techniques was utilized in the performance of this exam: Autom ated exposure control; adjustment of the mA and/or kV according to the patient's size; or use of an i terative reconstruction technique. Specific details can be referenced in the facility's radiology C T exam operational policy. CONTRAST: 75 mL Isovue-370 COMPARISON: None. FINDINGS: Lungs/pleura: There are multiple irregular semisolid and groundglass areas of nodular consolidation seen throughout the lungs. The largest on the left is in the left lower lobe measuring 1.5 x 1.3 cm. The largest on the right is in the right middle lobe measuring 1.4 x 1.4 cm. There is also dense a irspace consolidation with air bronchograms in the inferior medial right middle lobe. No evidence of pleural effusions Heart/vessels: No evidence of pulmonary emboli. The central pulmonary arteries are dilated although similar findings were seen on recent chest radiograph. Mediastinum/lymph nodes: Negative. Visualized upper abdomen: The spleen is incompletely imaged although appears to be enlarged Bones/soft tissues: Negative. Additional findings: None IMPRESSION: No evidence of pulmonary emboli The central pulmonary arteries are dilated which may be related to pulmonary arterial hypertension There are multiple irregular semisolid and groundglass areas of nodular consolidation throughout the lungs as described above. This could represent an acute infectious/inflammatory process however shor t-term interval follow-up recommended to exclude a malignant etiology The spleen is incompletely imaged although appears to be enlarged Report Dictated By: Munira Oliveira MD at 09/24/2018 11:32 AM Report E-Signed By: Munira Oliveira MD at 09/24/2018 11:48 AM WSN:[email or web address]
== END ==
LOC: CT 02:11
PROVIDERS: ATTEND Nurse Practitioner Family
DX: R91.8 Other nonspecific abnormal finding of lung field (principal)
CPT/HCPCS: 71275; J7050; Q9967